=== PATIENT | female | born 1960 | race Caucasian/White ===

== ENCOUNTER 2020-09-23 16:16 | Emergency (ER) | payer BC ==
[~2020-09-23] VITALS: Ht 165.1 cm; Wt 90.7 kg
[~2020-09-23 16:16] MED LIST: BIRTH CONTROL PILLS; CEPH500 PO; DIPH25 PO; HYDACE5 PO; PRED20 PO; RANI150 PO
[2020-09-23] MEDS ORDERED: CELE100 PO (16:55)
== END 2020-09-23 19:38 | disposition home or self-care (01) ==
LOC: ER 16:16
DX: S43.015A Anterior dislocation of left humerus, initial encounter (principal); W01.198A Fall on same level from slipping, tripping and stumbling with subsequent striking against other object, initial encounter
CPT/HCPCS: 23650; 29105; 73020; 73030; 96374-59; 99152; 99283-25; A9270; J1170; J2704; J7030

== ENCOUNTER 2020-11-02 09:24 | Day surgery (SDC) | payer BC ==
[~2020-11-02] VITALS: Ht 165.1 cm; Wt 98.5 kg
[~2020-11-02 09:24] MED LIST changes: +CELE100 PO
== END 2020-11-02 13:33 | disposition home or self-care (01) ==
LOC: ORSCSDS 09:24
PROVIDERS: Orthopaedic Surgery
PROC: 0RNK4ZZ Release Left Shoulder Joint, Percutaneous Endoscopic Approach (ICD-10-PCS; principal; 2020-11-02 10:45)
PROC: 0LS44ZZ Reposition Left Upper Arm Tendon, Percutaneous Endoscopic Approach (ICD-10-PCS; principal; 2020-11-02 10:45)
PROC: 0LQ24ZZ Repair Left Shoulder Tendon, Percutaneous Endoscopic Approach (ICD-10-PCS; principal; 2020-11-02 10:45)
DX: M75.122 Complete rotator cuff tear or rupture of left shoulder, not specified as traumatic (principal); M75.22 Bicipital tendinitis, left shoulder; M75.42 Impingement syndrome of left shoulder; S43.005A Unspecified dislocation of left shoulder joint, initial encounter; E66.01 Morbid (severe) obesity due to excess calories; Z68.36 Body mass index [BMI] 36.0-36.9, adult
CPT/HCPCS: C1713; J0171; J0690; J1100; J2250; J2405; J2704; J3010; J7120

== ENCOUNTER → 2021-05-09 | Outpatient (CLI) | payer BC | LOC: LAB 14:52 → LAB SHORT 14:52 | DX: D48.5 Neoplasm of uncertain behavior of skin (principal); D22.5 Melanocytic nevi of trunk | CPT/HCPCS: 88305 ==

== ENCOUNTER → 2021-06-13 | Outpatient (CLI) | payer BC | END | disposition home or self-care (01) | LOC: LAB SHORT 08:17 | DX: D22.5 Melanocytic nevi of trunk (principal) | CPT/HCPCS: 88305 ==

== ENCOUNTER 2024-07-23 07:24 | Day surgery (SDC) | payer BC ==
[~2024-07-23] VITALS: Ht 165.1 cm; Wt 86.4 kg
[~2024-07-23 07:24] MED LIST changes: +ACET500 PO; +LACTOBACILLUS RHAMNO PO
[2024-07-23] MEDS ORDERED: propofoL 50 ML IV ONE (07:58)
[2024-07-23] MEDS ORDERED: Lactated Ringer's 1,000 ML IV ONE ×2 (07:58→08:29)
--- NOTE | 2024-07-23 08:59 | NUR ---
07/23/24 0859 Lucia Howard CONSULTED ABOUT THE PT 3 LEED EKG. THIS RN NOTED SINUS RYTHM WITH PAUSE EVERY 4 BEATS. REVIEWED AND NO FURTHER ACTION IS NEEDED.
[2024-07-23 09:53] VITALS: BP 115/64
== END 2024-07-23 09:57 | disposition home or self-care (01) ==
LOC: ORSCSDS 07:24
PROVIDERS: Surgery
PROC: 0DJD8ZZ Inspection of Lower Intestinal Tract, Via Natural or Artificial Opening Endoscopic (ICD-10-PCS; principal; 2024-07-23 08:45)
DX: Z12.11 Encounter for screening for malignant neoplasm of colon (principal); A69.20 Lyme disease, unspecified; Z79.899 Other long term (current) drug therapy
CPT/HCPCS: J2704; J7120